=== PATIENT | female | born 1985 | race Caucasian/White ===

== ENCOUNTER 2016-09-25 16:10 | Emergency (ER) | payer BC ==
[2016-09-25 16:30] VITALS: BP 114/83
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
== END 2016-09-25 17:38 | disposition home or self-care (01) ==
LOC: JD.ED 16:10
DX: Z04.41 Encounter for examination and observation following alleged adult rape (principal); F17.210 Nicotine dependence, cigarettes, uncomplicated
CPT/HCPCS: 80306; 99283; 99284

== ENCOUNTER 2017-08-18 12:03 | Emergency (ER) | payer BC, OTHER ==
[2017-08-18] MEDS ORDERED: fentaNYL 100 MCG/2 ML SDV IVPUSH ONE (12:15)
[2017-08-18] MEDS ORDERED: Ondansetron 4 MG/2 ML SDV IVPUSH ONE (12:15)
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
[2017-08-18] MEDS ORDERED: Iopamidol 612 MG/ML 150 ML Bottle IVPUSH ONE (12:20)
[2017-08-18] MEDS ORDERED: Sodium Chloride 0.9% 10 ML Syringe FLUSH PRN (12:20)
[2017-08-18] MEDS ORDERED: Sodium Chloride 0.9% 1,000 ML IV ONE (12:20)
[2017-08-18] MEDS ORDERED: Sodium Chloride 0.9% 1,000 ML IV SCH (12:30)
--- NOTE | 2017-08-18 13:07 | CT ---
CT chest Technique: Multiple axial sections were obtained from above the lung apices inferiorly through the lung bases. Intravenous contrast was utilized. Comparison: No prior chest imaging. Findings: Mediastinum and hilar regions appear within normal limits. Slight pulsation artifact appears to be present within the ascending aorta. No pericardial thickening is seen. Incidental bilateral breast prosthesis are noted. Lungs show no acute parenchymal densities. No pleural effusions are seen. No pneumothorax is identified. No rib fracture is appreciated. Impression: 1. Nothing acute is appreciated on CT study of the chest. Diagnostic code #1 CT abdomen and pelvis Technique: Multiple axial sections were obtained from above the dome of the diaphragm inferiorly through the pubic symphysis. Intravenous contrast was utilized. No oral contrast has been given. Comparison: No prior abdominal imaging. Findings: Liver shows no focal parenchymal abnormality. Spleen appears within normal limits. Adrenal glands show no nodule. Pancreas appears within normal limits. Kidneys show symmetric contrast enhancement without hydronephrosis or mass. No renal laceration is seen. Gallbladder shows no calcified gallstones. Aorta appears within normal limits. No retroperitoneal adenopathy or mesenteric abnormalities are seen. No pelvic mass or adenopathy is seen. Delayed images shows contrast within the bladder and within the distal ureters. Bone window settings shows no discrete fracture within the pelvis or hips. Impression: 1. Nothing acute is seen on CT study of the abdomen and pelvis. Diagnostic code #1
--- NOTE | 2017-08-18 13:07 | CT ---
CT cervical spine Technique: Multiple axial sections were obtained from above C1 inferiorly to the bottom of T2. Reconstructed sagittal and coronal images were reviewed. Findings: Vertebral body heights and disc spaces are maintained. Vertebral bodies and posterior arches are intact with no fracture being seen. No bony central or bony neural foraminal stenosis is seen. No abnormal subluxation is seen on the reconstructed sagittal images. Impression: 1. Nothing acute is identified on CT study of the cervical spine. Diagnostic code #1
--- NOTE | 2017-08-18 13:09 | CT ---
Head CT Technique: Multiple axial sections through the brain were obtained. Intravenous contrast was not utilized. Comparison: No previous intracranial imaging. Findings: Ventricles along with basal cisterns and sulci over convexities are within normal limits for the patient's age. No abnormal parenchymal densities are seen. No evidence of intracranial hemorrhage. No midline shift or mass effect is seen. Visualized sinuses are clear. No acute calvarial abnormality is appreciated. Impression: 1. Nothing acute is seen on noncontrast head CT study. Diagnostic code #1
--- NOTE | 2017-08-18 13:11 | CT ---
CT lumbar spine Technique: Multiple axial sections through the lumbar spine were obtained. Reconstructed sagittal and coronal images were reviewed. Findings: Vertebral body heights and disc spaces are maintained. Vertebral bodies and posterior arches are intact. No fracture is seen. No traumatic disc herniation is seen. No central canal stenosis or neural foraminal stenosis is seen. No abnormal subluxation is seen on the reconstructed sagittal images. Impression: 1. Nothing acute is seen on CT study of the lumbar spine. Diagnostic code #1
--- NOTE | 2017-08-18 13:12 | CT ---
CT thoracic spine Technique: Multiple axial sections through the thoracic spine were obtained. Reconstructed coronal and sagittal images were reviewed. Findings: Mild scattered endplate osteophytes are seen within the mid and lower thoracic spine. Vertebral bodies and posterior arches are intact. No fracture is seen. No abnormal subluxation is seen on the reconstructed sagittal images. Impression: 1. Mild scattered degenerative change. 2. Nothing acute is seen on CT study of the thoracic spine. Diagnostic code #2
[2017-08-18 14:27] VITALS: BP 124/74
== END 2017-08-18 14:30 | disposition home or self-care (01) ==
LOC: JD.ED 12:03
DX: S13.9XXA Sprain of joints and ligaments of unspecified parts of neck, initial encounter (principal); S39.012A Strain of muscle, fascia and tendon of lower back, initial encounter; S20.211A Contusion of right front wall of thorax, initial encounter; S80.01XA Contusion of right knee, initial encounter; Z79.899 Other long term (current) drug therapy; V89.2XXA Person injured in unspecified motor-vehicle accident, traffic, initial encounter
CPT/HCPCS: 36415; 70450; 71260; 72125; 72128; 72131; 74177; 80053; 81001; 82150; 85007; 85027; 85610; 93005; 96361; 96374; 96375; 99285; J2405; J3010; J7040; J7050; Q9967; 99284

== ENCOUNTER 2018-04-15 15:53 | Emergency (ER) | payer BC, OTHER ==
[2018-04-15 16:25] VITALS: BP 135/100
--- NOTE | 2018-04-15 18:00 | EDM.PDOC ---
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 BLEEDING FOR 5 DAYS Time Seen by Provider: 04/15/18 16:27 Source of Information: Reports: Patient History Limitations: Reports: No Limitations - History of Present Illness INITIAL COMMENTS - FREE TEXT/NARRATIVE: This is a 33 y/o F A1 here for bleeding during x 5 days. She is unsure how far along she is, just that her home tests have been positive. Her LNMP was 03/31/18. She is currently trying to get and took her Nuva Ring out in January. She has never had bleeding like this before in her previous pregnancies. She states the bleeding is like "spotting" and not heavy at all. She describes that it looks more "black and tarry" for 3 days and now is "bright red" for 2 days. No other symptoms at this time other than sore breasts. She has not seen an LOADING RACK SUPERVISOR at this time. - Related Data Allergies Allergy/AdvReac Type Severity Reaction Status Date / Time No Known Allergies Allergy Verified 04/15/18 16:20 Past Medical History Other HEENT History: corneal transplant - Past Surgical History Female Surgical History: Reports: Dilitation & Evacuation Other Female Surgeries/Procedures: breast augmenation and tummy tuck Social & Family History - Tobacco Use Smoking Status *Q: Current Every Day Smoker Years of Tobacco use: 15 Packs/Tins Daily: 0.5 - Caffeine Use Caffeine Use: Reports: Soda - Living Situation & Occupation Living situation: Reports: Occupation: Employed ED ROS GENERAL - Review of Systems Review Of Systems: ROS reveals no pertinent complaints other than HPI. ED EXAM - Physical Exam Exam: See Below Exam Limited By: No Limitations General Appearance: Alert, WD/WN, No Apparent Distress Eye Exam: Bilateral Eye: PERRL Ears: Normal External Exam, Hearing Grossly Normal Head: Atraumatic, Normocephalic Neck: Normal Inspection, Supple, Non-Tender, Full Range of Motion Respiratory/Chest: No Respiratory Distress, Lungs Clear, Normal Breath Sounds, No Accessory Muscle Use, Chest Non-Tender Cardiovascular: Normal Peripheral Pulses, Regular Rate, Rhythm, No Edema, No Gallop, No JVD, No Murmur, No Rub GI/Abdominal Exam: Normal Bowel Sounds, Soft, Non-Tender, No Organomegaly, No Distention, No Abnormal Bruit, No Mass, Pelvis Stable (Female) Exam: Normal Bimanual Exam, Normal External Exam, Vaginal Bleeding. No: Cervix Motion Tenderness, Vaginal Discharge, Vaginal Lesions Psychiatric: Normal Affect, Normal Mood Skin Exam: Warm, Dry, Intact, Normal Color, No Rash Course - Vital Signs Last Recorded V/S: Last Vital Signs Temp 98.0 F 04/15/18 16:20 Pulse 116 H 04/15/18 16:20 Resp 15 04/15/18 16:20 BP 135/100 H 04/15/18 16:20 Pulse Ox 99 04/15/18 16:20 - Orders/Labs/Meds Orders: Active Orders 24 hr Category Date Time Status OB Transvaginal [US] Stat Exams 04/15/18 19:06 Ordered Labs: Laboratory Tests 04/15/18 04/15/18 Range/Units 18:17 18:17 HCG, Qual Positive H (NEGATIVE) HCG, Quant 17.0 mIU/mL - Re-Assessments/Exams Free Text/Narrative Re-Assessment/Exam: 04/15/18 18:01 I have ordered HCG Qualitative and Quantitative PE shows no cervical erosion, moderate amt of blood from the os. 04/15/18 19:54 HCG 17; likely she is having miscarriage Transvaginal u/s pending to r/o ectopic ; pt would like results called to her Departure - Departure Time of Disposition: 20:00 Disposition: Home, Self-Care 01 Condition: Good Clinical Impression: Complete - Discharge Information *PRESCRIPTION DRUG MONITORING PROGRAM REVIEWED*: Not Applicable *COPY OF PRESCRIPTION DRUG MONITORING REPORT IN PATIENT MACEY: Not Applicable Instructions: Vaginal Bleeding During , First Trimester, [id number] , Miscarriage, [id number] Referrals: PCP,None [Primary Care Provider] - Forms: ED Department Discharge Additional Instructions: You were seen today in the ED for bleeding during 1st trimester of . HCG levels were found to be low, physical exam showed bleeding from inside the uterus. Transvaginal U/S results showed no ectopic . At this time, it seems likely you are having a miscarriage. It is important that you wait 2 cycles before trying to get again, as well as taking vitamins , so the uterus has time to recover and it will help increase your changes of a successful . Recommend follow up with your primary care provider and/ or LOADING RACK SUPERVISOR. If you have any new or worsening symptoms, please return to the ED. - My Orders Last 24 Hours: My Active Orders 04/15/18 19:06 OB Transvaginal [US] Stat - Assessment/Plan Last 24 Hours: My Active Orders 04/15/18 19:06 OB Transvaginal [US] Stat
--- NOTE | 2018-04-16 13:59 | US ---
First trimester obstetrical ultrasound: Multiple real-time images were obtained transvaginally. Comparison: No previous study. No intrauterine gestational sac is seen. Incidental nabothian cyst is seen. Endometrial thickness is normal at 5.8 mm. Simple cyst is noted within the left ovary measuring 4.4 cm in size. Right ovary is unremarkable. No adnexal abnormalities are seen. Impression: 1. No intrauterine gestational sac is seen. Simple cyst within the left ovary measuring 4.4 cm. Note: If patient has positive test, findings could represent too early to visualize by ultrasound, miscarriage and unlikely nonvisualized ectopic Diagnostic code #2 I agree with preliminary report from [facility], finalized on 04/15/18, 10:29 PM Central Time
== END 2018-04-15 20:37 | disposition home or self-care (01) ==
LOC: JD.ED 15:53
DX: O03.9 Complete or unspecified spontaneous abortion without complication (principal); F17.210 Nicotine dependence, cigarettes, uncomplicated
CPT/HCPCS: 36415; 76817; 76817-26; 84702; 84703; 99282; 99284-25

== ENCOUNTER 2018-07-28 08:18 | Day surgery (SDC) | payer BC, OTHER ==
[~2018-07-28 08:18] MED LIST: Lactated Ringers 1,000 ML IV SCH; Lidocaine 1%/Sod Bicarbonate in NS 8.4% 1 ML Syringe IDERM PRN; Sodium Chloride 0.9% 10 ML Syringe FLUSH PRN
[2018-07-28] MEDS ORDERED: fentaNYL 100 MCG/2 ML SDV ONE (08:22)
[2018-07-28] MEDS ORDERED: Propofol 200 MG/20 ML SDV ONE (08:22)
[2018-07-28] MEDS ORDERED: Ketamine 500 mg/10 ML MDV ONE (08:23)
[2018-07-28] MEDS ORDERED: Midazolam 1 MG/ML 2 ML SDV ONE (08:23)
[2018-07-28] MEDS ORDERED: Lidocaine 1% 4 ML ONE (08:25)
[2018-07-28] MEDS ORDERED: Ondansetron 4 MG/2 ML SDV ONE (09:01)
[2018-07-28] MEDS ORDERED: Ketorolac 30 MG/ML SDV ONE (09:01)
[2018-07-28] MEDS ORDERED: Dexamethasone 4 MG/ML SDV ONE (09:01)
[2018-07-28] MEDS ORDERED: ceFAZolin 1 GM Vial ONE (09:37)
[2018-07-28] MEDS ORDERED: Ondansetron 4 MG/2 ML SDV IVPUSH PRN (09:50)
--- NOTE | 2018-07-28 09:54 | PCM.OPNOTE ---
- General Post-Op/Procedure Note Date of Surgery/Procedure: 07/28/18 Operative Procedure(s): exam under anesthesia, dilation and suction curettage Findings: uterus sounded to9-1/2 cm. Tissue within the endometrial cavity consistent with products of conception. No adnexal abnormalities noted. Uterus approximately 7- 8 weeks' size. Pre Op Diagnosis: miscarriage/nonviable Post-Op Diagnosis: Same Anesthesia Technique: MAC Primary Surgeon: Norman Saucedo Secondary Surgeon: Mahendra Miller Fluid Replacement, Intraop: 1,000 EBL in mLs: 10 Complications: None Condition: Good Free Text/Narrative:: surgery duration: 6 minutes The patient was taken to the operating room and placed in a supine position operating table. She received 2 g of Ancef preoperatively for infection prophylaxis and had sequential compression stockings in place for DVT prophylaxis. patient was administered MAC for anesthesia. She was placed in a dorsal lithotomy position. A weighted speculum was placed in the vagina. Cervix is found to be dilated to approximately 1 centimeters. Uterus was sounded to approximately 9.5 cm. It was found to be anterior and mid position. An 7 mm suction curette was then introduced in routine fashion the endometrial cavity was evacuated. Moderate amount tissue was obtained. Findings consistent with products of conception. A medium size sharp curet was introduced and very careful fashion the endometrial cavity was curetted. It was be clear of any further tissue. The suction curet was then reintroduced and small and blood was removed. No further tissue was removed. This point the D&C was discontinued. The long Allis clamp used to stabilize the anterior lip the cervix was removed. Blood was removed from the vagina with a stick sponge and the weighted speculum was removed from the vagina. The patient was awakened from LMA anesthesia. The patient was discharged from the operating room in good condition.
[2018-07-28] MEDS ORDERED: Ketorolac 30 MG/ML SDV IVPUSH SCH (10:00)
[2018-07-28 10:01] VITALS: BP 126/52
--- NOTE | 2018-07-28 10:01 | PCM.PREANE ---
Preanesthetic Assessment - Anesthesia/Transfusion/Family Hx Anesthesia History: Prior Anesthesia Without Reaction Family History of Anesthesia Reaction: No - Review of Systems General: No Symptoms Pulmonary: No Symptoms (Smoker) Cardiovascular: No Symptoms Gastrointestinal: No Symptoms Neurological: No Symptoms, Other (c5-6 Fusion) Other: Reports: None (Left Corneal Transplant) - Physical Assessment NPO Status Date: 07/27/18 NPO Status Time: 22:30 O2 Sat by Pulse Oximetry: 98 Respiratory Rate: 16 Vital Signs: Last Vital Signs Temp 36.8 C 07/28/18 08:30 Pulse 91 07/28/18 08:30 Resp 16 07/28/18 08:30 BP 115/66 07/28/18 08:30 Pulse Ox 98 07/28/18 08:30 Height: 1.65 m Weight: 62.596 kg ASA Class: 2 Mental Status: Alert & Oriented x3 Airway Class: Mallampati = 1 Dentition: Reports: Normal Dentition Thyro-Mental Finger Breadths: 3 Mouth Opening Finger Breadths: 3 ROM/Head Extension: Full Lungs: Clear to Auscultation, Normal Respiratory Effort Cardiovascular: Regular Rate, Regular Rhythm - Lab Values: Laboratory Last Values WBC 9.71 K/mm3 (3.98-10.04) 07/28/18 08:44 RBC 4.14 M/mm3 (3.98-5.22) 07/28/18 08:44 Hgb 13.7 gm/L (11.2-15.7) 07/28/18 08:44 Hct 41.1 % (34.1-44.9) 07/28/18 08:44 MCV 99.3 fl (79.4-94.8) H 07/28/18 08:44 MCH 33.1 pg (25.6-32.2) H 07/28/18 08:44 MCHC 33.3 g/dl (32.2-35.5) 07/28/18 08:44 RDW Std Deviation 45.7 fL (36.4-46.3) 07/28/18 08:44 Plt Count 241 K/mm3 (182-369) D 07/28/18 08:44 MPV 9.4 fl (9.4-12.3) 07/28/18 08:44 Neut % (Auto) 73.1 % (34.0-71.1) H 07/28/18 08:44 Lymph % (Auto) 18.8 % (19.3-51.7) L 07/28/18 08:44 [place] % (Auto) 5.8 % (4.7-12.5) 07/28/18 08:44 Eos % (Auto) 1.9 (0.7-5.8) 07/28/18 08:44 Baso % (Auto) 0.2 % (0.1-1.2) 07/28/18 08:44 Neut # (Auto) 7.10 K/mm3 (1.56-6.13) H 07/28/18 08:44 Lymph # (Auto) 1.83 K/mm3 (1.18-3.74) 07/28/18 08:44 [place] # (Auto) 0.56 K/mm3 (0.24-0.36) H 07/28/18 08:44 Eos # (Auto) 0.18 K/mm3 (0.04-0.36) 07/28/18 08:44 Baso # (Auto) 0.02 K/mm3 (0.01-0.08) 07/28/18 08:44 - Allergies Allergies/Adverse Reactions: Allergies Allergy/AdvReac Type Severity Reaction Status Date / Time coconut oil Allergy Rash Verified 07/28/18 09:01 - Anesthesia Plan Pre-Op Medication Ordered: Anxiolytic - Acknowledgements Anesthesia Type Planned: MAC Pt an Appropriate Candidate for the Planned Anesthesia: Yes Alternatives and Risks of Anesthesia Discussed w Pt/Guardian: Yes Pt/Guardian Understands and Agrees with Anesthesia Plan: Yes PreAnesthesia Questionnaire HEENT History: Reports: Impaired Vision Other HEENT History: corneal transplant Cardiovascular History: Reports: None Respiratory History: Reports: None Gastrointestinal History: Reports: Other (See Below) Other Gastrointestinal History: abdominoplasty COMPLEX DIRECTOR History: Reports: , Spontaneous , Other (See Below) Other OB/BYN History: gential herpes, hyperemesis gravidum, bacteral vaginosis, vaginal discharge, vaginal odor, vulvular itching Musculoskeletal History: Reports: None Neurological History: Reports: Other (See Below) Psychiatric History: Reports: None Endocrine/Metabolic History: Reports: None Hematologic History: Reports: None Immunologic History: Reports: None Oncologic (Cancer) History: Reports: None Dermatologic History: Reports: Other (See Below) Other Dermatologic History: skin lesion, facial swelling - Past Surgical History Head Surgeries/Procedures: Reports: None HEENT Surgical History: Reports: None Cardiovascular Surgical History: Reports: None Respiratory Surgical History: Reports: None Female Surgical History: Reports: Breast Implant, Dilitation & Evacuation Other Female Surgeries/Procedures: breast augmenation and tummy tuck Endocrine Surgical History: Reports: None Neurological Surgical History: Reports: C-Spine, Spinal Fusion Musculoskeletal Surgical History: Reports: None Oncologic Surgical History: Reports: None - SUBSTANCE USE Smoking Status *Q: Current Every Day Smoker Recreational Drug Use History: No - HOME MEDS Home Medications: Home Meds Vits #93/Iron Fum/FA [ Formula Tablet] 1 tab PO DAILY 07/27/18 [History] - CURRENT (IN HOUSE) MEDS Current Meds: Current Medications Lactated Ringer's (Ringers, Lactated) 1,000 mls @ 125 mls/hr IV ASDIRECTED CHRISTI Stop: 07/28/18 23:00 Last Admin: 07/28/18 08:44 Dose: 125 mls/hr Ketorolac Tromethamine (Toradol) 30 mg IVPUSH ONETIME CHRISTI Stop: 07/28/18 18:00 Lidocaine/Sodium Bicarbonate (Buffered Lidocaine 1% In Ns 8.4%) 0.25 ml IDERM ONETIME PRN PRN Reason: Prior to IV Start Stop: 07/28/18 18:00 Last Admin: 07/28/18 08:44 Dose: 0.25 ml Ondansetron HCl (Zofran) 4 mg IVPUSH Q4H PRN PRN Reason: Nausea Stop: 07/28/18 18:00 Sodium Chloride (Saline Flush) 10 ml FLUSH ASDIRECTED PRN PRN Reason: Keep Vein Open Stop: 07/28/18 18:00 Discontinued Medications Cefazolin Sodium (Ancef) Confirm Administered Dose 2 gm .ROUTE .STK-MED ONE Stop: 07/28/18 09:38 Dexamethasone (Dexamethasone) Confirm Administered Dose 4 mg .ROUTE .STK-MED ONE Stop: 07/28/18 09:02 Fentanyl (Sublimaze) Confirm Administered Dose 100 mcg .ROUTE .STK-MED ONE Stop: 07/28/18 08:23 Lidocaine HCl (Xylocaine-Mpf 1%) Confirm Administered Dose 4 mls @ as directed .ROUTE .STK-MED ONE Stop: 07/28/18 08:26 Ketamine HCl (Ketalar) Confirm Administered Dose 500 mg .ROUTE .STK-MED ONE Stop: 07/28/18 08:24 Ketorolac Tromethamine (Toradol) Confirm Administered Dose 30 mg .ROUTE .STK- MED ONE Stop: 07/28/18 09:02 Midazolam HCl (Versed 1 Mg/Ml) Confirm Administered Dose 2 mg .ROUTE .STK-MED ONE Stop: 07/28/18 08:24 Ondansetron HCl (Zofran) Confirm Administered Dose 4 mg .ROUTE .STK-MED ONE Stop: 07/28/18 09:02 Propofol (Diprivan 20 Ml) Confirm Administered Dose 600 mg .ROUTE .STK-MED ONE Stop: 07/28/18 08:23
--- NOTE | 2018-07-28 10:02 | PCM48HPAN ---
Post Anesthesia Note - EVALUATION WITHIN 48HRS OF ANESTHETIC Vital Signs in Normal Range: Yes Patient Participated in Evaluation: Yes Respiratory Function Stable: Yes Airway Patent: Yes Cardiovascular Function Stable: Yes Hydration Status Stable: Yes Pain Control Satisfactory: Yes Nausea and Vomiting Control Satisfactory: Yes Mental Status Recovered: Yes Pulse Rate: 103 SaO2: 94 Resp Rate: 18 Temperature: 36.7 C Blood Pressure: 126/52
[2018-07-28] MEDS ORDERED: Acetaminophen/oxyCODONE 325-5 MG Tab PO SCH (10:24)
== END 2018-07-28 10:39 | disposition home or self-care (01) ==
LOC: JD.SDS 08:18
PROVIDERS: ATTEND Obstetrics & Gynecology
DX: O03.4 Incomplete spontaneous abortion without complication (principal); O02.89 Other abnormal products of conception; O21.0 Mild hyperemesis gravidarum; I25.10 Atherosclerotic heart disease of native coronary artery without angina pectoris; Z87.891 Personal history of nicotine dependence; Z91.018 Allergy to other foods
CPT/HCPCS: 36415; 59812; 85025; A9270; J0690; J1100; J1885; J2001; J2250; J2405; J2704; J3010; J7120

== ENCOUNTER 2024-07-17 17:25 | Emergency (ER) | payer OTHER ==
[2024-07-17] MEDS ORDERED: Ondansetron 4 MG/2 ML SDV ONE (18:36)
[2024-07-17] MEDS ORDERED: HYDROmorphone 0.5 MG/0.5 ML Syringe ONE (18:37)
[2024-07-17 18:56] LABS: BASOPHILS PERCENT AUTO 0.5 % (0.0-1.0); EOSINOPHILS ABSOLUTE AUTO 0.2 K/mm3 (0.0-0.4); EOSINOPHILS PERCENT AUTO 3.1 % (0.0-6.0); HEMOGLOBIN 14.3 gm/dl (12.0-16.0); IMMATURE GRAN ABSOLUTE AUTO 0.02 K/mm3 (0.00-0.05); IMMATURE GRAN PERCENT AUTO 0.3 % (0.0-0.4); LYMPHOCYTES ABSOLUTE AUTO 3.1 K/mm3 (1.0-4.8); LYMPHOCYTES PERCENT AUTO 41.1 % (24.0-44.0); MEAN CORPUSCULAR HEMOGLOBIN 34.2 pg (28.0-32.0); MEAN CORPUSCULAR HGB CONC 33.3 g/dl (32.0-36.0); MEAN CORPUSCULAR VOLUME 102.9 fl (83.0-99.0); MONOCYTES ABSOLUTE AUTO 0.4 K/mm3 (0.0-0.8); MONOCYTES PERCENT AUTO 5.6 % (0.0-8.0); NEUTROPHILS ABSOLUTE AUTO 3.7 K/mm3 (1.8-7.7); NEUTROPHILS PERCENT AUTO 49.4 % (41.0-71.0); PLATELET COUNT,PLT 270 K/mm3 (150-400); RED BLOOD CELL COUNT 4.18 M/mm3 (4.10-5.30); WHITE BLOOD CELL COUNT,WBC 7.51 K/mm3 (3.9-11.3)
[2024-07-17 19:09] LABS: A/G RATIO 1.1 (1-2); ALANINE AMINOTRANSFERASE,ALT 22 U/L (14-59); ALBUMIN 3.9 g/dl (3.4-5.0); ALKALINE PHOSPHATASE 71 U/L (46-116); ANION GAP 11.3 (5-15); ASPARTATE AMNIOTRANSFERASE,AST 10 U/L (15-37); BILIRUBIN TOTAL 0.2 mg/dL (0.2-1.0); BLOOD UREA NITROGEN,BUN 13 mg/dL (7-18); BUN/CREATININE RATIO 16.3 (14-18); CALCIUM 9.2 mg/dL (8.5-10.1); CARBON DIOXIDE,CO2 27 mEq/L (21-32); CHLORIDE,CL 104 mEq/L (98-107); CREATININE 0.8 mg/dL (0.55-1.02); EST CRCL DRUG DOSING (CG) 83.27 mL/min; ESTIMATED GFR 95 mL/min (>60); GLUCOSE RANDOM 88 mg/dL (70-99); LIPASE 39 U/L (16-77); POTASSIUM,K 4.3 mEq/L (3.5-5.1); PROTEIN TOTAL,TP 7.5 g/dl (6.4-8.2); SODIUM,NA 138 mEq/L (136-145)
[2024-07-17] MEDS: Sodium Chloride 0.9% 10 ML Syringe FLUSH ONE (19:12)
[2024-07-17] MEDS: Iopamidol 612 MG/ML 100 ML Bottle IVPUSH ONE (19:12)
[2024-07-17 19:21] LABS: C-REACTIVE PROTEIN < 0.05 mg/dL (<0.30)
[2024-07-17] MEDS: Sodium Chloride 0.9% 1,000 ML IV ONE (19:53)
[2024-07-17 20:30] VITALS: BP 108/83; PULSE 68
== END 2024-07-17 20:29 | disposition home or self-care (01) ==
LOC: JD.ED 17:25
DX: R10.31 Right lower quadrant pain (principal); Z91.018 Allergy to other foods
CPT/HCPCS: 36415; 74177; 80053; 81025; 83690; 85025; 86140; 99284; J7030; Q9967; 99283

== ENCOUNTER 2025-01-29 08:43 | Emergency (ER) | payer OTHER ==
[2025-01-29] MEDS ORDERED: Ketorolac 60 MG/2 ML SDV IM ONE (09:53)
[2025-01-29] MEDS: Ketorolac 30 MG/ML SDV IM ONE (10:11)
[2025-01-29 17:09] VITALS: BP 117/73; PULSE 94
== END 2025-01-29 11:30 | disposition home or self-care (01) ==
LOC: JD.ED 08:43
DX: S46.001A Unspecified injury of muscle(s) and tendon(s) of the rotator cuff of right shoulder, initial encounter (principal); M54.12 Radiculopathy, cervical region; Z79.899 Other long term (current) drug therapy; X58.XXXA Exposure to other specified factors, initial encounter
CPT/HCPCS: 73030; 96372; 99283; J1885